=== PATIENT | male | born 1965 | race Caucasian/White ===

== ENCOUNTER → 2022-08-03 | Outpatient (CLI) | payer BC, SELFPAY ==
[2022-08-03 17:40] LABS: Absolute Lymphocyte Count 1.46 X10^3/uL (0.83-4.51); Absolute Neutrophil Count 3.6 X10^3/uL (2.0-7.7); Basophil# 0.04 X10^3/uL; Basophil% 0.7 % (0-1); Eosinophil# 0.23 X10^3/uL; Eosinophils% 3.9 % (0-5); Hematocrit 41.9 % (40-54); Hemoglobin 14.1 g/dL (13.0-16.5); Lymphocyte # 1.46 X10^3/ul (0.83-4.51); Lymphocyte % 24.7 % (19-41); Mean Corp Hgb Conc 33.7 g/dL (32-36); Mean Corpuscular Hgb 29.8 pg (27.0-32.0); Mean Corpuscular Volume 88.6 fL (80-94); Monocyte# 0.57 X10^3/uL; Monocyte% 9.6 % (0-10); NRBC Flagged by Analyzer 0 % (0-5); Neutrophil % 60.8 % (47-70); Platelet Count 229 K/mm3 (150-450); RBC Distribution Width CV 13.1 % (11.6-14.6); RBC Distribution Width SD 42.5 fl (35.1-43.9); Red Blood Count 4.73 M/mm3 (4.6-6.2); White Blood Count 5.9 K/mm3 (4.4-11.0)
[2022-08-03 18:35] LABS: ALB/GLOB Ratio 1.1 RATIO (0.9-2.4); AST(SGOT) 13 U/L (15-37); Alanine Aminotransfer ALT/SGPT 17 U/L (16-61); Albumin, Serum 3.9 g/dL (3.2-5.0); Alkaline Phosphatase 65 U/L (45-117); Anion Gap 6 (5-15); BUN 18 mg/dL (7-18); BUN/Creat Ratio 22.5 RATIO (10-20); Calcium,Total 9.3 mg/dL (8.5-10.1); Chloride 107 mmol/L (98-107); EST Glomerular Filtration Rate 107 mL/min (>60); Est Glom Filt Rate - Afr Amer 129 mL/min (>60); Globulin 3.7 g/dL (2.2-4.2); Glucose 82 mg/dL (74-106); PSA,Total - Annual Screen 1.36 ng/mL (0.00-4.00); Potassium 4.1 mmol/L (3.5-5.1); Protein, Total 7.6 g/dL (6.4-8.2); Sodium Level 139 mmol/L (136-145); Thyroid Stim Hormone (TSH) 1.16 uIU/mL (0.358-3.74)
[2022-08-03 19:10] LABS: Hepatitis C Antibody Non-Reactive (Nonreactive); Vitamin D,25 Hydroxy 29.6 ng/mL
== END | disposition home or self-care (01) ==
LOC: POLAB3 17:12
PROVIDERS: Visit Provider Family Medicine Geriatric Medicine
DX: R53.83 Other fatigue (principal); Z12.5 Encounter for screening for malignant neoplasm of prostate; Z13.89 Encounter for screening for other disorder
CPT/HCPCS: 36415; 80053; 82306; 84153; 84443; 85025; 86803; G0103

== ENCOUNTER → 2023-02-03 | Outpatient (CLI) | payer OTHER, SELFPAY ==
[2023-02-03 12:38] LABS: Absolute Lymphocyte Count 1.39 X10^3/uL (0.83-4.51); Absolute Neutrophil Count 3.2 X10^3/uL (2.0-7.7); Basophil# 0.03 X10^3/uL; Basophil% 0.6 % (0-1); Eosinophils% 5.7 % (0-5); Hematocrit 44.1 % (40-54); Lymphocyte # 1.39 X10^3/ul (0.83-4.51); Lymphocyte % 26.3 % (19-41); Mean Corp Hgb Conc 31.7 g/dL (32-36); Mean Corpuscular Hgb 29.8 pg (27.0-32.0); Mean Corpuscular Volume 93.8 fL (80-94); Mean Platelet Vol. 10.9 fl (6.2-12.0); Monocyte# 0.32 X10^3/uL; NRBC Flagged by Analyzer 0 % (0-5); Neutrophil # 3.24 X10^3/uL (2.7-7.7); Neutrophil % 61.2 % (47-70); Platelet Count 227 K/mm3 (150-450); RBC Distribution Width CV 13.1 % (11.6-14.6); RBC Distribution Width SD 45.1 fl (35.1-43.9); White Blood Count 5.3 K/mm3 (4.4-11.0)
[2023-02-03 13:01] LABS: ALB/GLOB Ratio 1.1 RATIO (0.9-2.4); AST(SGOT) 11 U/L (15-37); Alanine Aminotransfer ALT/SGPT 19 U/L (16-61); Albumin, Serum 3.7 g/dL (3.2-5.0); Alkaline Phosphatase 58 U/L (45-117); Anion Gap 6 (5-15); BUN 24 mg/dL (7-18); BUN/Creat Ratio 27.5 RATIO (10-20); Calcium,Total 8.6 mg/dL (8.5-10.1); Chloride 108 mmol/L (98-107); Creatinine, Serum 0.87 mg/dL (0.70-1.30); EST Glomerular Filtration Rate 96 mL/min (>60); Est Glom Filt Rate - Afr Amer 116 mL/min (>60); Globulin 3.4 g/dL (2.2-4.2); Glucose 100 mg/dL (74-106); Potassium 3.8 mmol/L (3.5-5.1); Protein, Total 7.1 g/dL (6.4-8.2); Sodium Level 140 mmol/L (136-145)
== END | disposition home or self-care (01) ==
PROVIDERS: Visit Provider Family Medicine Geriatric Medicine
DX: R53.83 Other fatigue (principal)
CPT/HCPCS: 36415; 80053; 84443; 85025

== ENCOUNTER → 2023-06-17 | Outpatient (CLI) | payer OTHER, SELFPAY ==
[2023-06-17 12:17] LABS: Absolute Lymphocyte Count 1.54 X10^3/uL (0.83-4.51); Absolute Neutrophil Count 2.8 X10^3/uL (2.0-7.7); Basophil# 0.05 X10^3/uL; Basophil% 0.9 % (0-1); Eosinophil# 0.53 X10^3/uL; Eosinophils% 9.2 % (0-5); Hematocrit 44.9 % (40-54); Hemoglobin 14.3 g/dL (13.0-16.5); Lymphocyte # 1.54 X10^3/ul (0.83-4.51); Lymphocyte % 26.6 % (19-41); Mean Corp Hgb Conc 31.8 g/dL (32-36); Mean Corpuscular Hgb 28.8 pg (27.0-32.0); Mean Corpuscular Volume 90.5 fL (80-94); Mean Platelet Vol. 11.1 fl (6.2-12.0); Monocyte# 0.85 X10^3/uL; Monocyte% 14.7 % (0-10); NRBC Flagged by Analyzer 0 % (0-5); Neutrophil % 48.4 % (47-70); Platelet Count 265 K/mm3 (150-450); RBC Distribution Width CV 13.4 % (11.6-14.6); RBC Distribution Width SD 44.7 fl (35.1-43.9); Red Blood Count 4.96 M/mm3 (4.6-6.2); White Blood Count 5.8 K/mm3 (4.4-11.0)
[2023-06-17 13:17] LABS: ALB/GLOB Ratio 0.9 RATIO (0.9-2.4); AST(SGOT) 11 U/L (15-37); Alanine Aminotransfer ALT/SGPT 19 U/L (16-61); Albumin, Serum 3.5 g/dL (3.2-5.0); Alkaline Phosphatase 52 U/L (45-117); Anion Gap 2 (5-15); BUN 20 mg/dL (7-18); BUN/Creat Ratio 20.6 RATIO (10-20); Calcium,Total 8.8 mg/dL (8.5-10.1); Chloride 110 mmol/L (98-107); Creatinine, Serum 0.97 mg/dL (0.70-1.30); EST Glomerular Filtration Rate 85 mL/min (>60); Est Glom Filt Rate - Afr Amer 103 mL/min (>60); Globulin 3.9 g/dL (2.2-4.2); Glucose 106 mg/dL (74-106); Potassium 4.5 mmol/L (3.5-5.1); Protein, Total 7.4 g/dL (6.4-8.2); Sodium Level 140 mmol/L (136-145)
== END | disposition home or self-care (01) ==
LOC: LAB 11:17
PROVIDERS: PCP Family Medicine Geriatric Medicine; Referring Provider Family Medicine Geriatric Medicine; Visit Provider Family Medicine Geriatric Medicine
DX: R53.83 Other fatigue (principal)
CPT/HCPCS: 36415; 80053; 85025

== ENCOUNTER 2023-07-01 08:06 | Day surgery (SDC) | payer OTHER, SELFPAY ==
[2023-07-01] VITALS (7 sets, daily range): BP systolic 110–129; BP diastolic 72–91; PULSE 50–69; RESP 12–18; TEMP 36.1–36.6; O2SAT 88–100; BMI 33.6
--- NOTE | 2023-07-01 | BUN_PTH ---
PATHOLOGY RESULTS PATIENT: YENNY BUSTOS [place] [facility] [place][id number] AGE/SX: 57/M ROOM: RE07/01/[address]: Dr. Fabián Brothers DPM : 1965 BED: DIS: 07/01/2023 SPEC #: [id number] RECD: 07/01/23 09:44 STATUS: ROSHAN RENicolasa #: [id number] JUSTINO: 07/01/23 00:[address]: Fabián Brothers DEPT: SURGICAL PATHOLOGY RECD BY: Dolly Hancock ENTERED: 07/01/23 10:55 SP TYPE: BUNION OTHR DR: Dr. Jamie Gold MD Tissues: TISSUE SURGICALLY REMOVED Bony tissue, NOS Toe, NOS Toe, NOS Procedures: Decalcification bone/plaque Special Stain Group II Surgery Specimen Level III Imprint (control) HEADER OPERATION: First metatarsal osteotomy, bunionectomy PRE-OP DIAGNOSIS: Left foot hammertoe TISSUE SUBMITTED: A - Possible gout left first toe, fresh, B - Left foot bunion, C - Left second toe hammertoe, D - Left third toe hammertoe MICROSCOPIC DIAGNOSIS A. Left first toe tissue, biopsy: Fragments of fibrocartilaginous and fibroconnective tissue with reactive changes. Touch imprint from fresh tissue shows numerous monosodium urate (gout) crystals. B. Left foot bunion, bunionectomy: Pieces of bone with reactive changes, clinically bunion. C. Left second toe hammertoe, excision: Pieces of bone with reactive changes, clinically hammertoe. D. Left third toe hammertoe, excision: Pieces of bone with reactive changes, clinically hammertoe. SJ:rg 07/06/2023 COMMENT The specimen is evaluated at the time of Touch prep smears by Dr. Izaguirre. Immediate Evaluation = Polarized light microscopy reveals monosodium urate (gout) crystals. MICROSCOPIC DESCRIPTION Slides are reviewed. GROSS DESCRIPTION A - Received fresh for crystal examination labeled with the patient's name is a specimen designated possible gout, left first toe. The specimen consists of multiple irregular fragments of braun-white to pink soft tissue that in aggregate measure 1.0 x 1.0 x 0.2 cm. Touch imprints are prepared for crystal examination and reviewed by Dr. Izaguirre. The specimen is totally submitted in one cassette. B - Received in fixative is one container labeled with the patient's name and designated left foot bunion. The specimen consists of multiple pieces of bone and soft tissue that in aggregate measure 2.5 x 3.0 x 0.3 cm. The specimen is totally submitted in one cassette after decalcification. C - Received in fixative is one container labeled with the patient's name and designated left second toe hammertoe. The specimen consists of two pieces of bone measuring in aggregate 2.0 x 1.5 x 0.6 cm. The entire specimen is submitted in one cassette after decalcification. D - Received in fixative is one container labeled with the patient's name and designated left third toe hammertoe. The specimen consists of two pieces of bone measuring in aggregate 1.2 x 1.1 x 0.6 cm. The entire specimen is submitted in one cassette after decalcification. / SJ:rg 07/01/2023 TC:5 CPT: 43811 x4, 14211 x3, 23151
--- OUTSIDE RECORDS SUMMARY | 2023-07-01 08:19 | XMS RPT_ITS | CCD ---
Author Name Unknown Address [address] [place] [address] [facility] [address] [place] [address] Organization [facility] Care Team Providers Care Machine Preservative Filler Name Role Phone SARA FUENTES Referring Unavailable SARA FUENTES Attending Unavailable Romeo Gold MD Primary Care Provider [phone] JAMILA DESHPANDE Attending Unavailable ROMEO GOLD Primary Care Unavailable Medications Current Medications Medication Drug Class(es) Dates Sig (Normalized) Sig (Original) acetaminophen 325 mg / oxyCODONE hydrochloride 5 mg oral tablet (1 source) Opioid Agonist Start: 06-12-2023 take 1 tablet by mouth every six hours for pain oxyCODONE-acetami nophen (Percocet) 5-325 mg tablet Indications: Kidney stone Take 1 tablet by mouth every 6 hours if needed for severe pain (7 - 10). 12 tablet 0 06/12/2023 Active Completed/Discontinued Medications Medication Drug Class(es) Dates Sig (Normalized) Sig (Original) 1 ml morphine sulfate 4 mg/ml prefilled syringe (1 source) Opioid Agonist Start: 06-12-2023 End: 06-12-2023 morphine injection 4 mg prochlorperazine 5 mg/ml injectable solution (1 source) Phenothiazine Start: 06-12-2023 End: 06-12-2023 prochlorperazine (Compazine) injection 5 mg 1000 ml sodium chloride 9 mg/ml injection (2 sources) Start: 06-12-2023 End: 06-12-2023 sodium chloride 0.9 % bolus 1,000 mL Problems Active Problems Problem Classification Problem Date Documented Da te Episodic/Chronic Calculus of urinary tract (3 sources) Kidney stone; Translations: [Calculus of kidney] Onset: 06-12-2023 06-12-2023 Episodic Past or Other Problems Problem Classification Problem Date Documented Da te Episodic/Chronic Skin and subcutaneous tissue infections (1 source) Local infection of the skin and subcutaneous tissue, unspecified; Translations: [Local infection of the skin and subcutaneous tissue, unspecified] Onset: 11-23-2020 Episodic Results Test Name Value Interpretation Reference Range Facil ity Vital Signs Date Time Vital Sign Value Performing Clinician Facility 06-12-2023 06:49-0500 Diastolic blood pressure 74 mm[Hg] Jamila Deshpande MD Work Phone: [facility] 06-12-2023 06:49-0500 Heart rate 50 /min Jamila Deshpande MD Work Phone: [facility] 06-12-2023 06:49-0500 Respiratory rate 20 /min Jamila Deshpande MD Work Phone: [facility] 06-12-2023 06:49-0500 SaO2% (BldA) [Mass fraction] 95 % Jamila Deshpande MD Work Phone: [facility] 06-12-2023 06:49-0500 Systolic blood pressure 141 mm[Hg] Jamila Deshpande MD Work Phone: [facility] 06-12-2023 04:10-0500 Body height 175.3 cm Jamila Deshpande MD Work Phone: [facility] 06-12-2023 04:10-0500 Body mass index (BMI) [Ratio] 32.49 kg/m2 Jamila Deshpande MD Work Phone: [facility] 06-12-2023 04:10-0500 Body temperature 97.5 [degF] Jamila Deshpande MD Work Phone: [facility] 06-12-2023 04:10-0500 Body weight 99.79 kg Jamila Deshpande MD Work Phone: [facility] Encounters Encounter Date Encounter Type Care Provider Facility Start: 06-12-2023 End: 06-12-2023 Emergency department patient visit JAMILA DESHPANDE [facility] Start: 06-12-2023 End: 06-12-2023 Emergency department patient visit Jamila Deshpande MD Work Phone: [facility] Emergency Medicine Procedures Date Procedure Procedure Detail Performing Clinician Start: 06-12-2023 EXTRA URINE RAYA TUBE C LUPE DESHPANDE Start: 06-12-2023 URINALYSIS MICROSCOP IC WITH REFLEX CULTURE JAMILA EDUARDO Start: 06-12-2023 URINALYSIS WITH REFL EX CULTURE AND MICROSCOPIC JAMILA EDUARDO Start: 06-12-2023 CT ABDOMEN PELVIS WO IV CONTRAST JAMILA EDUARDO Start: 06-12-2023 Basic metabolic 2000 panel - Serum or Plasma JAMILA ROSSIMER Start: 06-12-2023 CBC W Auto Different ial panel - Blood JAMILA DESHPANDE Start: 06-12-2023 Hepatic function 200 0 panel - Serum or Plasma JAMILA DESHPANDE Start: 06-12-2023 Lipase [Enzymatic activity/volume] in Serum or Plasma JAMILA DESHPANDE Start: 06-12-2023 Urinalysis complete W Reflex Culture panel - Urine Jamila Deshpande MD Work Phone: Start: 06-12-2023 Urnls dip stick/tabl et reagent auto microscopy Jamila Deshpande MD Work Phone: Start: 06-12-2023 Ct abdomen & pelvis w/o contrast material Jamila Deshpande MD Work Phone: Start: 06-12-2023 Comprehensive metabo lic panel Jamila Deshpande MD Work Phone: Plan of Treatment Date Care Activity Detail Author Start: 02-11-2023 Influenza vaccination Influenza Vacc ine (#1) [facility] Start: 12-24-2020 COVID-19 Vaccine (3 - Pfizer series) COVID-19 Vaccine (3 - Pfizer series) [facility] Start: 2016 Zoster Vaccines (1 of 2) Zoste r Vaccines (1 of 2) [facility] Start: 1988 DTaP/Tdap/Td Vaccine s (1 - Tdap) DTaP/Tdap/Td Vaccines (1 - Tdap) [facility] Start: 1984 Diabetes mellitus screening Diabetes Screening [facility] Start: 1984 Hepatitis C screening Hepatitis C Sc reening [facility] Start: 10-10-1967 MMR Vaccines (1 of 1 - Standard series) MMR Vaccines (1 of 1 - Standard series) [facility] Start: 1966 Hepatitis B Vaccines (1 of 3 - 3-dose series) Hepatitis B Vaccines (1 of 3 - 3-dose series) [facility] Start: 1966 HIV screening HIV Screening [facility] Start: 1966 Lipid panel Lipid Panel [facility] Start: 1966 Screening for malign ant neoplasm of colon [facility] Start: 1965 Yearly Adult Physical Yearly Adult P hysical [facility] End: 06-12-2023 Extra Urine Raya Tube [facility] Work Phone: Payers Date Payer Category Payer Private Health Insurance [employer] [id number] 2016-Present [address] [address] [place] [address] [id number] 2016 Private Health Insurance [id number] 1965 Unknown [id number] Social History Date Type Detail Facility Start: 06-12-2023 Tobacco smoking stat us MSIS Never smoked tobacco [facility] Work Phone: Start: 06-12-2023 Tobacco use and exposure Smokeless tobacco non-user [facility] Work Phone: Start: 06-12-2023 Alcohol intake Current drinke r of alcohol (finding) [facility] Work Phone: Start: 06-12-2023 History of Social function [facility] Work Phone: Start: 06-12-2023 [facility] Start: 1965 Sex Assigned At Not on file U [facility] Work Phone: Start: 06-02-2023 End: 06-12-2023 Exposure to SARS-CoV-2 (event) Not sure [facility] Work Phone: Hospital Discharge instructions 06-12-2023 Discharge Instructions Note Date & Type Note Facility 06-12-2023 Hospital Discharg e instructions Jamila Deshpande MD - 06/12/2023 6:35 AM EST Recommend following up with urology. Feel free to return the emergency department if your symptoms worsen or if you have any additional concerns. documented in this encounter [facility] Work Phone: Emergency department Note 06-12-2023 Jamila Deshpande MD - 06/12/2023 4:07 AM EST Note Date & Type Note Facility 06-12-2023 Emergency department Note This patient is a 57-year-old male without history of kidney stones presents with a chief complaint of right flank pain for the last 2 or 3 days. Associated with nausea and decreased appetite. Couple episodes of emesis. Feels as though he cannot get comfortable. Denies any urinary symptoms. Review of Systems Physical Exam Vitals and nursing note reviewed. Constitutional: General: He is not in acute distress. Appearance: He is well-developed. HENT: Head: Normocephalic and atraumatic. Eyes: Conjunctiva/sclera: Conjunctivae normal. Cardiovascular: Rate and Rhythm: Normal rate and regular rhythm. Heart sounds: No murmur heard. Pulmonary: Effort: Pulmonary effort is normal. No respiratory distress. Breath sounds: Normal breath sounds. Abdominal: Palpations: Abdomen is soft. Tenderness: There is no abdominal tenderness. There is right CVA tenderness. Musculoskeletal: General: No swelling. Cervical back: Neck supple. Skin: General: Skin is warm and dry. Capillary Refill: Capillary refill takes less than 2 seconds. Neurological: Mental Status: He is alert. Psychiatric: Mood and Affect: Mood normal. Labs Reviewed CBC WITH AUTO DIFFERENTIAL - Abnormal Result Value WBC 12.1 (*) nRBC 0.0 RBC 4.94 Hemoglobin 14.6 Hematocrit 43.5 MCV 88 MCH 29.6 MCHC 33.6 RDW 13.3 Platelets 193 Neutrophils % 83.0 Immature Granulocytes %, Automated 0.3 Lymphocytes % 8.9 Monocytes % 7.5 Eosinophils % 0.1 Basophils % 0.2 Neutrophils Absolute 10.02 (*) Immature Granulocytes Absolute, Automated 0.04 Lymphocytes Absolute 1.07 (*) Monocytes Absolute 0.91 Eosinophils Absolute 0.01 Basophils Absolute 0.02 BASIC METABOLIC PANEL - Abnormal Glucose 122 (*) Sodium 135 (*) Potassium 4.4 Chloride 101 Bicarbonate 25 Anion Gap 13 Urea Nitrogen 25 (*) Creatinine 1.36 (*) eGFR 61 Calcium 9.7 HEPATIC FUNCTION PANEL - Abnormal Albumin 4.3 Bilirubin, Total 1.4 (*) Bilirubin, Direct 0.3 Alkaline Phosphatase 52 ALT 11 AST 14 Total Protein 7.9 URINALYSIS WITH REFLEX CULTURE AND MICROSCOPIC - Abnormal Color, Urine Yellow Appearance, Urine Clear Specific Pierron, Urine 1.027 pH, Urine 5.0 Protein, Urine 30 (1+) (*) Glucose, Urine NEGATIVE Blood, Urine NEGATIVE Ketones, Urine 20 (1+) (*) Bilirubin, Urine NEGATIVE Urobilinogen, Urine 2.0 (*) Nitrite, Urine NEGATIVE Leukocyte Esterase, Urine NEGATIVE LIPASE - Normal Lipase 18 Narrative: Venipuncture immediately after or during the administration of Metamizole may lead to falsely low results. Testing should be performed immediately prior to Metamizole dosing. URINALYSIS WITH REFLEX CULTURE AND MICROSCOPIC Narrative: The following orders were created for panel order Urinalysis with Reflex Culture and Microscopic. Procedure Abnormality Status --------- ------ Urinalysis with Reflex C...[[id number]] Abnormal Final result Extra Urine Raya Tube[[id number]] In process Please view results for these tests on the individual orders. EXTRA URINE RAYA TUBE URINALYSIS MICROSCOPIC WITH REFLEX CULTURE WBC, Urine NONE RBC, Urine NONE Mucus, Urine 1+ Amorphous Crystals, Urine 1+ CT abdomen pelvis wo IV contrast Final Result 2 mm obstructing calculus at the distal right ureterovesical junction versus recently passed into the bladder lumen. Mild right hydronephrosis and hydroureter Tiny intrarenal calculi measuring up to 3 mm Cholelithiasis Signed by Clarence Yo MD Procedures Medical Decision Making Patient is a 61-year-old male presents with right flank pain for the past 2 to 3 days. No difficulty urinating. No history of kidney stones. IV access was established and normal saline 1 L was administered. Ordered basic labs including urinalysis. Required a second liter to provide a urinalysis. There was no blood in the urine. CT scan demonstrated a 2 mm kidney stone either in the bladder or at the UVJ. Urinalysis was not consistent with a urinary tract infection. Biliary numbers are not consistent with cholecystitis. Patient can be treated as an outpatient with instruction to follow-up with urology. Will prescribe Percocet Flomax and Zofran. Patient already takes naproxen daily. Diagnoses as of 06/12/23635 Kidney stone Jamila Deshpande MD 06/12/23635 documented in this encounter [facility] Work Phone: Physician Emergency department Note 06-12-2023 Jamila Deshpande MD - 06/12/2023 4:07 AM EST Note Date & Type Note Facility 06-12-2023 Physician Emergency department Note This patient is a 57-year-old male without history of kidney stones presents with a chief complaint of right flank pain for the last 2 or 3 days. Associated with nausea and decreased appetite. Couple episodes of emesis. Feels as though he cannot get comfortable. Denies any urinary symptoms. Review of Systems Physical Exam Vitals and nursing note reviewed. Constitutional: General: He is not in acute distress. Appearance: He is well-developed. HENT: Head: Normocephalic and atraumatic. Eyes: Conjunctiva/sclera: Conjunctivae normal. Cardiovascular: Rate and Rhythm: Normal rate and regular rhythm. Heart sounds: No murmur heard. Pulmonary: Effort: Pulmonary effort is normal. No respiratory distress. Breath sounds: Normal breath sounds. Abdominal: Palpations: Abdomen is soft. Tenderness: There is no abdominal tenderness. There is right CVA tenderness. Musculoskeletal: General: No swelling. Cervical back: Neck supple. Skin: General: Skin is warm and dry. Capillary Refill: Capillary refill takes less than 2 seconds. Neurological: Mental Status: He is alert. Psychiatric: Mood and Affect: Mood normal. Labs Reviewed CBC WITH AUTO DIFFERENTIAL - Abnormal Result Value WBC 12.1 (*) nRBC 0.0 RBC 4.94 Hemoglobin 14.6 Hematocrit 43.5 MCV 88 MCH 29.6 MCHC 33.6 RDW 13.3 Platelets 193 Neutrophils % 83.0 Immature Granulocytes %, Automated 0.3 Lymphocytes % 8.9 Monocytes % 7.5 Eosinophils % 0.1 Basophils % 0.2 Neutrophils Absolute 10.02 (*) Immature Granulocytes Absolute, Automated 0.04 Lymphocytes Absolute 1.07 (*) Monocytes Absolute 0.91 Eosinophils Absolute 0.01 Basophils Absolute 0.02 BASIC METABOLIC PANEL - Abnormal Glucose 122 (*) Sodium 135 (*) Potassium 4.4 Chloride 101 Bicarbonate 25 Anion Gap 13 Urea Nitrogen 25 (*) Creatinine 1.36 (*) eGFR 61 Calcium 9.7 HEPATIC FUNCTION PANEL - Abnormal Albumin 4.3 Bilirubin, Total 1.4 (*) Bilirubin, Direct 0.3 Alkaline Phosphatase 52 ALT 11 AST 14 Total Protein 7.9 URINALYSIS WITH REFLEX CULTURE AND MICROSCOPIC - Abnormal Color, Urine Yellow Appearance, Urine Clear Specific Pierron, Urine 1.027 pH, Urine 5.0 Protein, Urine 30 (1+) (*) Glucose, Urine NEGATIVE Blood, Urine NEGATIVE Ketones, Urine 20 (1+) (*) Bilirubin, Urine NEGATIVE Urobilinogen, Urine 2.0 (*) Nitrite, Urine NEGATIVE Leukocyte Esterase, Urine NEGATIVE LIPASE - Normal Lipase 18 Narrative: Venipuncture immediately after or during the administration of Metamizole may lead to falsely low results. Testing should be performed immediately prior to Metamizole dosing. URINALYSIS WITH REFLEX CULTURE AND MICROSCOPIC Narrative: The following orders were created for panel order Urinalysis with Reflex Culture and Microscopic. Procedure Abnormality Status --------- ------ Urinalysis with Reflex C...[[id number]] Abnormal Final result Extra Urine Raya Tube[[id number]] In process Please view results for these tests on the individual orders. EXTRA URINE RAYA TUBE URINALYSIS MICROSCOPIC WITH REFLEX CULTURE WBC, Urine NONE RBC, Urine NONE Mucus, Urine 1+ Amorphous Crystals, Urine 1+ CT abdomen pelvis wo IV contrast Final Result 2 mm obstructing calculus at the distal right ureterovesical junction versus recently passed into the bladder lumen. Mild right hydronephrosis and hydroureter Tiny intrarenal calculi measuring up to 3 mm Cholelithiasis Signed by Clarence Yo MD Procedures Medical Decision Making Patient is a 61-year-old male presents with right flank pain for the past 2 to 3 days. No difficulty urinating. No history of kidney stones. IV access was established and normal saline 1 L was administered. Ordered basic labs including urinalysis. Required a second liter to provide a urinalysis. There was no blood in the urine. CT scan demonstrated a 2 mm kidney stone either in the bladder or at the UVJ. Urinalysis was not consistent with a urinary tract infection. Biliary numbers are not consistent with cholecystitis. Patient can be treated as an outpatient with instruction to follow-up with urology. Will prescribe Percocet Flomax and Zofran. Patient already takes naproxen daily. Diagnoses as of 06/12/23635 Kidney stone Jamila Deshpande MD 06/12/23635 [facility] Work Phone: Evaluation note Note Date & Type Note Facility documented in this encounter [facility] Work Phone: Summary Purpose Family History No Family History Records FoundNo Family History Records Found Advance Directives No Advanced Directives Records FoundNo Advanced Directives Records Found Additional Source Comments (unrecognized sect ion and content) No Status Records FoundNo Status Records Found INFORMATION SOURCE (unrecogn ized section and content) DATE CREATED AUTHOR AUTHOR'S ORGANIZ ATION 06/19/2023 [facility] Reason for Visit (unrecogniz ed section and content) Scheduled Active and Recently Administ ered Medications (unrecognized section and content) Care Teams (unrecognized sec tion and content) FOR RECORDS PERTAINING TO PATIENTS WHO ARE OR HAVE BEEN ENROLLED IN A CHEMICAL DEPENDENCY/SUBSTANCEABUSE PROGRAM, SOME INFORMATION MAY BE OMITTED. This clinical summary was aggregated from multiple sources. Caution should be exercised in using it in the provision of clinical care. This summary normalizes information from multiple sources, and as a consequence, information in this document may materially change the coding, format and clinical context of patient data. In addition, data may be omitted in some cases. CLINICAL DECISIONS SHOULD BE BASED ON THE PRIMARY CLINICAL RECORDS. [facility]. provides no warranty or guarantee of the accuracy or completeness of information in this document.
--- NOTE | 2023-07-01 08:30 | RAD_ITS ---
STUDY: X-RAY - LEFT FOOT CLINICAL: Male, 57 years old. Pain. TECHNIQUE: 4 intraoperative spot films of the foot. COMPARISON: None. FINDINGS: The coned-down spot images demonstrate a first metatarsal osteotomy procedure with 2 fully threaded screws inserted through the first metatarsal. Pins are also inserted through the phalanges of the second and third toes. RAD/Foot 2 Views IMPRESSION: Intraoperative spot films during screw fixation of the first metatarsal osteotomy and pin placement through the second through third toes. Electronically Signed: Babatunde Rose MD at 12:06 EST ,
[2023-07-01] MEDS: Lactated Ringers 1,000 ML 15 ML IV (08:42)
--- NOTE | 2023-07-01 08:55 | DCINST_ITS ---
Discharge Instructions Diet Discharge Diet: Light diet - advance as tolerated Activity Discharge Activity: May Not Drive Weight Bearing Status: No weight bearing (No weightbearing left foot) Keep extremity elevated above heart level: Left Leg (Keep left foot elevated for at least 50 minutes of every hour) Dressing / Incision Call your doctor if your incision/area has: Sudden Increased Bleeding and Foul Smelling Discharge Call your doctor if you observe: Fever of 101 or Higher, Shortness of breath, Chest pain, Increased palpitations (irregular heartbeat), Calf discomfort and Uncontrolled pain Follow Up Care Test Results: Test results from this visit will be discussed in further detail at your follow- up appointment, if applicable. Discharge Plan Admission Attending Provider: Fabián Brothers Primary Care Provider: Jamie Gold Chi Discharge Orders/Prescriptions Prescriptions: New hydrocodone-acetaminophen 5-325 mg tablet 1 - 2 tab PO Q6H PRN (Reason: pain) 4 Days Qty: 24 0RF amoxicillin-pot clavulanate [Augmentin] 500-125 mg tablet 1 tab PO Q12H Qty: 14 0RF No Action gabapentin 300 mg capsule 300 mg PO BID Patient Comments: TAKE 1 CAPSULE BY MOUTH TWICE A DAY naproxen 500 mg tablet 500 mg PO BID Patient Comments: TAKE 1 TABLET BY MOUTH TWICE A DAY Referrals / Follow Up: Jamie Gold Chi, MD [Primary Care Provider] - Disposition Disposition (needs filled in before D/C Order can be placed): Home, Self Care
[2023-07-01] MEDS: Cefazolin 2 GM in 0.9% Normal Saline (100mL Bag) 100 ML IV (09:03)
[2023-07-01] MEDS: Bupivacaine Mpf 0.5% 30 ML VIAL ×2 (09:15→11:05)
--- NOTE | 2023-07-01 11:31 | OP.PCM_ITS ---
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 He develops a very painful callus in between the toes to the lateral 2nd toe mainly. He has trouble with shoes and with activities. He has tried nonsurgical care however symptoms persist and have progressed. We discussed further options. He elected to proceed with the procedures. This was discussed with him in detail. We reviewed all the possible benefits, risks, goals and expectations. He expressed understanding and agreement. We also reviewed the typical postoperative and expected postoperative course. He expressed understanding and agreement and wanted to proceed forward with surgical intervention. All alternative options were discussed with him and all the possible benefits, risks of the alternative options were discussed with him as well in detail. He expressed understanding and agreement and again want to proceed for surgical intervention. The consent form was reviewed with him and he freely signed them. No guarantees were given or implied. He was cleared from a medical standpoint. Operative Procedure: He was brought back into the operating room and was placed onto the operative table in the supine position. He was carefully secured to the operating room table with safety belt around his waist. The patient did receive 2 g of intravenous cefazolin for antibiotic prophylaxis, the patient received general anesthesia per the anesthesiologist and then a total of 20 mL of 0.5% bupivacaine plain was given as a regional infiltrative nerve block around the first ray and 2nd and 3rd toes on his left foot after overlying skin was cleansed with 70% isopropyl alcohol. A well-padded pneumatic tourniquet was applied around his left ankle. The left foot was scrubbed, prepped and draped in the usual aseptic fashion. Further attention was directed to the left foot, there was hallux valgus bunion and significant contracture of the 2nd and 3rd toes with significant callus formation to the lateral 2nd toe. The foot was elevated for 3 minutes and the left ankle pneumatic tourniquet was inflated to 250 mmHg. 1st metatarsal osteotomy bunionectomy: Using a #15 scalpel blade and longitudinal skin incision was made medial distal 1st metatarsal and 1st metatarsal phalangeal joint. Careful dissection was completed down to the first metatarsal and first metatarsophalangeal joint. The capsule of the first metatarsophalangeal joint was incised medially as well as the periosteum of the distal first metatarsal using a #15 scalpel blade and these were carefully partially reflected exposing the distal first metatarsal and the first metatarsal. The first metatarsal head was visualized, synovitis present. There was a medial and dorsal eminence of the 1st metatarsal head. There was noted to be some chronic degenerative changes with thinning of the cartilage present. The dorsal 1st metatarsal eminence was resected using a powered sagittal saw. A transverse osteotomy was made using a powered sagittal saw to the first metatarsal neck just proximal to the sesamoids. The Arthrex MIS jig was inserted in standard fashion, it was held in place using a kwire. The capital fragment was gently and carefully shifted laterally and slightly plantarly reducing the first intermetatarsal angle and reducing the dorsiflexion. The osteotomy site was fixated using rigid open reduction and internal fixation technique using one 4.0mm and one 3.5mm Arthrex fully threaded cannulated screws. The osteotomy was stable and good alignment present, screws intact in good position. Intraoperative fluoroscopy used to confirmed this as well. The jig was removed. It was also noted that the adductor hallucis longus tendon was very tight as well as the lateral capsule and the sesamoidal ligament of the fibular sesamoid. Careful dissection was completed to the distal 1st intermetatarsal space, and the adductor hallucis longus tendon, lateral capsule of the first metatarsal phalangeal joint, and the sesamoidal ligament of the fibular sesamoid were identified, these were gently released using a #15 scalpel blade. The 1st metatarsal shelf was resected. All resected bone was sent to pathology as specimen. The hallux was put through a range of motion, there was good smooth gliding range of motion present. The site was flushed out with copious amounts of normal saline solution. The periosteum and the first metatarsophalangeal joint capsule were carefully reapproximated using 3-0 Vicryl. The subcutaneous tissue layer was carefully reapproximated using 3-0 Vicryl. The skin was carefully reapproximated using 3-0 Monocryl. 2nd digit hammer toe correction: Attention was directed to the toe. A dorsal linear longitudinal incision was made over the proximal interphalangeal joint (PIPJ) of the toe. An incision was made longitudinally to the extensor digitorum longus tendon which was incised down the middle keeping the tendon ends intact, this was done with a 15 blade. The dorsal PIPJ joint capsule was incised with a 15 blade. The head the proximal phalanx was resected using a powered sagittal saw. The lateral aspect of the middle phalanx was prominent so the prominent portion was resected using a powered sagittal saw. The resected bone was sent to pathology. The site was flushed out with copious amounts of normal saline solution. A 0.062 in kwire was placed through the phalanges of the toe holding the toe in rectus position, there was good bone to bone contact. This was confirmed with intra operative fluoroscopy. The site was again flushed out with copious amounts of normal saline solution. The skin was reapproximated using 4-0 Monocryl. The kwire was trimmed externally. 3rd digit hammer toe correction: Attention was directed to the toe. A dorsal linear longitudinal incision was made over the proximal interphalangeal joint (PIPJ) of the toe. An incision was made longitudinally to the extensor digitorum longus tendon which was incised down the middle keeping the tendon ends intact, this was done with a 15 blade. The dorsal PIPJ joint capsule was incised with a 15 blade. The head the proximal phalanx was resected using a powered sagittal saw. The lateral aspect of the middle phalanx was prominent so the prominent portion was resected using a powered sagittal saw. The resected bone was sent to pathology. The site was flushed out with copious amounts of normal saline solution. A 0.062 in kwire was placed through the phalanges of the toe holding the toe in rectus position, there was good bone to bone contact. This was confirmed with intra operative fluoroscopy. The site was again flushed out with copious amounts of normal saline solution. The skin was reapproximated using 4-0 Monocryl. The kwire was trimmed externally. An additional 20mL of 0.5% Bupivacaine plain was given as a local block to the 1st ray, 2nd and 3rd toes left foot to help with post op pain control. The pneumatic tourniquet was deflated (total time was 89 minutes). There was immediate return of warmth and perfusion to the foot with CFT < 2 seconds to all toes. The patient tolerated the above procedure well and anesthesia well with no complications. The patient was transported from the operative room to the recovery room with vital signs stable and in good condition. Post operative orders were placed, and post operative instructions were reviewed with the patient and his family. No weightbearing left foot, keep the dressing clean, dry and intact. Keep foot elevated for at least 50 minutes of every hour. Grafts/Implants Used: 2 x arthrex cannulated screws, 2 x 0.062in kwires Complications None
--- NOTE | 2023-07-01 11:40 | RAD_ITS ---
STUDY: X-RAY - LEFT FOOT CLINICAL: Male, 57 years old. Post op. TECHNIQUE: 3 views of the left foot. COMPARISON: None. FINDINGS: There is a first metatarsal osteotomy with 2 fully threaded screws traversing through the first metatarsal. There are pins traversing through the phalanges of the second and third toes. Intact talus, calcaneus, and tarsal bones. There is a small plantar calcaneal spur. Normal visualized subtalar, talonavicular, calcaneocuboid, tarsal and tarsometatarsal articulations. Normal second through fifth metatarsi. Normal metatarsophalangeal joint of the great toe. Normal tibial and fibular sesamoid bones. Normal interphalangeal joint of the great toe. Normal phalanges of the great toe. Normal second through fifth metatarsophalangeal joints. Normal interphalangeal joints and phalanges of the fourth and fifth toes. There is soft tissue swelling along the dorsum of the forefoot. RAD/Foot min 3 Views IMPRESSION: First metatarsal osteotomy with 2 fully threaded screws traversing through the first metatarsal. Pins traversing through the phalanges of the second and third toes. Small plantar calcaneal spur. Soft tissue swelling along the dorsum of the forefoot. Electronically Signed: Babatunde Rose MD at 12:01 EST ,
== END 2023-07-01 13:10 | disposition home or self-care (01) ==
LOC: SDC 08:09 → AC 08:11
PROVIDERS: PCP Family Medicine Geriatric Medicine; Referring Provider Podiatrist; Visit Provider Podiatrist
PROC: (CPT 28292; principal; 2023-07-01 09:25)
DX: M20.12 Hallux valgus (acquired), left foot (principal); M21.612 Bunion of left foot; M20.42 Other hammer toe(s) (acquired), left foot; Z87.891 Personal history of nicotine dependence
CPT/HCPCS: 28285; 28296; 01480; 73620; 73630; 76000; 88304; 88305; 88311; 88313; C1713; J7120; J2405